=== PATIENT | female | born 1940 | race Caucasian/White ===

== ENCOUNTER 2017-06-03 19:27 | Emergency (ER) | payer MEDICARE, SELFPAY ==
[2017-06-03 19:29] VITALS: BP 153/77; PULSE 92; RESP 18; TEMP 38; O2SAT 94; BMI 26.1
== END 2017-06-03 22:30 | disposition left against medical advice (07) ==
LOC: ED 22:11
PROVIDERS: Emergency Provider Emergency Medicine; Family Provider Family Medicine; PCP Family Medicine
DX: R69 Illness, unspecified (principal)

== ENCOUNTER 2018-09-30 21:55 | Emergency (ER) | payer MEDICARE, SELFPAY ==
[2018-09-30 21:55] VITALS: BP 161/74; PULSE 63; RESP 18; TEMP 36.4; O2SAT 100; BMI 26.0
[2018-09-30 22:12] LABS: Mucous, Urine 0 SEEN /hpf (<or=2+); Red Blood Cells-Urine 0 SEEN /hpf (0-5)
[2018-09-30 22:32] LABS: Color, Urine Yellow (Yellow); Glucose, Dipstick Normal (Normal); Ketone-Dipstick Negative (Negative); Leukocyte Esterase-Dipstick 500 /ul (Negative); Nitrite-Dipstick Positive (Negative); Occult Blood-Urine 10 /ul (Negative); Protein-Dipstick 15 mg/dl (Negative); Urine Bilirubin Dipstick Negative (Negative); Urine Clarity Cloudy (Clear); Urine Urobilinogen Normal (Normal)
--- NOTE | 2018-09-30 22:50 | ED.VISSUMM ---
- ER Visit Summary Date of Service: 09/30/18 Chief Complaint: UTI History of Present Illness: The patient is a 78 F who presents with UTI symptoms. She has a history of frequent recurrent UTIs. She complains of 1 day of bladder pressure and dysuria. She took some leftover Keflex that she had without resolution of symptoms. She denies any systemic symptoms. Physical Examination: Afebrile vitals unremarkable Moist mucous membranes Heart regular rate and rhythm Lungs clear Abdomen soft nontender Test Results: UA shows 500 leukocyte esterase, positive nitrates. Emergency Department Course and Treatment: Patient will be treated with Cipro. She was advised to follow-up with her primary care physician. She understands to return for new or worsening symptoms. She was discharged. Treatment Plan: [] Disposition: Discharge Impression: UTI This note was generated with [employer] dictation software. It may contain incorrect words, spelling, and punctuation that were not noted in review of the chart prior to signing ED Disposition - Plan for ED Patient: Referrals: Manuelito Escamilla MD [Primary Care Provider] -
--- NOTE | 2018-09-30 22:52 | ED.DEP ---
ED Disposition - Plan for ED Patient: Instructions: Urinary Tract Infections in Women Prescriptions: Ciprofloxacin [Cipro] 500 mg PO BID #14 tab Prescription Printed Referrals: Manuelito Escamilla MD [Primary Care Provider] -
[2018-09-30 22:53] LABS: Bacteria 2+ /hpf (None Seen); White Blood Cells 50-100 SEEN /hpf (0-5)
[2018-09-30 22:54] LABS: Squamous Epithelial Cells - UA 0-5 SEEN /hpf (5-10)
== END 2018-09-30 23:17 | disposition home or self-care (01) ==
LOC: ED 22:58
PROVIDERS: Emergency Provider Emergency Medicine; Family Provider Family Medicine; PCP Family Medicine
DX: N39.0 Urinary tract infection, site not specified (principal); I10 Essential (primary) hypertension; E78.00 Pure hypercholesterolemia, unspecified; Z87.440 Personal history of urinary (tract) infections; Z79.899 Other long term (current) drug therapy
CPT/HCPCS: 81001; 99282

== ENCOUNTER 2019-07-27 12:54 | Emergency (ER) | payer MEDICARE, SELFPAY ==
[2019-07-27 12:57] VITALS: BP 158/66; PULSE 81; RESP 17; TEMP 36.8; O2SAT 97; BMI 27.4
--- NOTE | 2019-07-27 13:06 | NURSING ---
NO OLD EKGS
--- NOTE | 2019-07-27 13:53 | RAD_ITS ---
STUDY: X-RAY CHEST REASON FOR EXAM: Female, 79 years old. Palpitations, chest pain TECHNIQUE: Single AP portable view of the chest. COMPARISON: None. FINDINGS: EKG electrodes are seen. Mild increased markings in the right upper lobe as well as in the lower lobes. This may represent either early infiltrates versus atelectasis. Follow-up is recommended. There is no demonstrated pleural abnormality. Normal size heart. Normal mediastinum and petty. Normal visualized pulmonary arteries. Normal visualized aortic arch and descending thoracic aorta. Normal visualized thoracic spine. Normal visualized ribs, clavicles, and shoulders. There is no demonstrated abnormality of the visualized soft tissue structures of the upper abdomen. RAD/Chest 1 View (Portable) IMPRESSION: Faint areas of confluence in both lungs as described. Radiographic follow-up is recommended. Electronically Signed: Adalberto Suresh, at 14:42 EDT , Service support ,
--- NOTE | 2019-07-27 13:54 | EKG12_ITS ---
Test Reason : PALPS Blood Pressure : / mmHG Vent. Rate : 084 BPM Atrial Rate : 084 BPM P-R Int : 168 ms QRS Dur : 082 ms QT Int : 356 ms P-R-T Axes : 007 003 031 degrees QTc Int : 420 ms Sinus rhythm with Premature supraventricular complexes Otherwise normal ECG Confirmed by AMAYA KITCHEN ([id number]), technical writer and editor JOSI CATHERINE ([id number]) on 08/03/2019 1:43:49 PM Referred By: RASHAD/JULES Confirmed By:AMAYA KITCHEN
[2019-07-27 14:05] LABS: Absolute Lymphocyte Count 2.06 X10^3/uL (0.83-4.51); Absolute Neutrophil Count 4.8 X10^3/uL (2.0-7.7); Basophil# 0.03 X10^3/uL; Basophil% 0.4 % (0-1); Hematocrit 39.6 % (37-47); Lymphocyte # 2.06 X10^3/ul (4.0); Lymphocyte % 27.7 % (19-41); Mean Corp Hgb Conc 32.8 g/dL (32-36); Mean Corpuscular Hgb 31.1 pg (27.0-32.0); Mean Corpuscular Volume 94.7 fL (81-99); Monocyte# 0.57 X10^3/uL; Monocyte% 7.7 % (0-10); NRBC Flagged by Analyzer 0 % (0-5); Neutrophil # 4.76 X10^3/uL (2.7-7.7); Neutrophil % 63.9 % (47-70); Platelet Count 253 K/mm3 (150-450); RBC Distribution Width CV 12.5 % (11.6-14.6); RBC Distribution Width SD 43.4 fl (35.1-43.9); Red Blood Count 4.18 M/mm3 (4.2-5.4); White Blood Count 7.4 K/mm3 (4.4-11.0)
--- NOTE | 2019-07-27 14:14 | ED.VISSUMM ---
- ER Visit Summary Date of Service: 07/27/19 Chief Complaint: Palpitations History of Present Illness: The patient is a 79 F who presents with palpitations that began yesterday. Patient states she felt her heart beating irregular. Patient states she has an odd feeling in her chest. Patient states nothing makes it better or worse. Patient states that she has been taking some Mucinex DM for a upper respiratory infection. Patient also states that she has been drinking a little more coffee than normal. Patient states she normally drinks her coffee strong. Patient states that yesterday her palpitations lasted approximately 12 hours. Patient states today she drank some tea instead of drinking coffee. Patient states she felt palpitations after that. Patient denies any chest pain. Patient denies any nausea or vomiting. Patient denies any diaphoresis. Physical Examination: Vital signs are stable. Patient is afebrile. Patient is in no acute distress. Oral mucosa is pink and moist. Neck is supple. Trachea is midline. There is no JVD noted. Heart was regular rate and rhythm with frequent ectopics. Lungs are clear and equal bilaterally. Abdomen is soft. Bowel sounds are normal. There is no tenderness. There is no rebound or guarding noted. Skin is warm dry. Cranial nerves II through XII are intact. There are no focal motor or sensory deficits noted. Extremities are intact. There is no calf tenderness or edema. Test Results: EKG showed a normal sinus rhythm with a rate of 84 with frequent PACs. There are no acute ST or T wave changes. CBC and basic metabolic profile within normal limits. Troponin was normal. Portable chest x-ray was obtained. There are some increased markings in the right upper lobe as well as lower lobes. This was interpreted by the radiologist and reviewed by myself. Urinalysis does not show any evidence of urinary tract infection. Emergency Department Course and Treatment: Patient was resting comfortably on reevaluation. Patient was advised to stop taking the Mucinex DM. Patient was instructed to reduce caffeine intake. Patient was instructed to follow-up with her primary care physician in 5 to 7 days. Patient understood and was agreeable with the plan. All questions were answered. Disposition: Discharge home Impression: 1. Palpitations This note was generated with [employer] software. It may contain incorrect words, spelling, and punctuation that were not noted in review of the chart prior to signing ED Disposition - Plan for ED Patient: Disposition: Home or Assisted Living Diagnosis: Palpitations Instructions: ED Palpitations Referrals: Manuelito Escamilla MD [Primary Care Provider] - 5-7 Days
[2019-07-27 14:18] LABS: Anion Gap 5 (5-15); BUN 16 mg/dL (7-18); BUN/Creat Ratio 17.3 RATIO (10-20); Calcium,Total 9.5 mg/dL (8.5-10.1); Chloride 104 mmol/L (98-107); Creatinine, Serum 0.92 mg/dL (0.55-1.02); EST Glomerular Filtration Rate 62 mL/min (>60); Est Glom Filt Rate - Afr Amer 75 mL/min (>60); Estimated Creatinine Clearance 46.42 ml/min; Glucose 112 mg/dL (74-106); Potassium 4.2 mmol/L (3.5-5.1); Sodium Level 138 mmol/L (136-145)
[2019-07-27 15:05] LABS: Bacteria 0 SEEN /hpf (None Seen); Mucous, Urine 0 SEEN /hpf (<or=2+); Red Blood Cells-Urine 0 SEEN /hpf (0-5)
[2019-07-27 15:06] LABS: Color, Urine Yellow (Yellow); Glucose, Dipstick Normal (Normal); Ketone-Dipstick Negative (Negative); Leukocyte Esterase-Dipstick 100 /ul (Negative); Nitrite-Dipstick Negative (Negative); Occult Blood-Urine Negative /ul (Negative); Protein-Dipstick Negative (Negative); Urine Bilirubin Dipstick Negative (Negative); Urine Clarity Clear (Clear); Urine Urobilinogen Normal (Normal); Urine pH 6.5 (5.0 - 8.0)
[2019-07-27 15:18] LABS: Squamous Epithelial Cells - UA 0-5 SEEN /hpf (5-10); White Blood Cells 0-5 SEEN /hpf (0-5)
[2019-07-27 15:47] VITALS: BP 154/72; PULSE 77; RESP 16; O2SAT 97
== END 2019-07-27 15:54 | disposition home or self-care (01) ==
PROVIDERS: Emergency Provider Emergency Medicine; PCP Family Medicine
DX: R00.2 Palpitations (principal); E78.00 Pure hypercholesterolemia, unspecified; I10 Essential (primary) hypertension; F32.9 Major depressive disorder, single episode, unspecified
CPT/HCPCS: 71045; 80048; 81001; 84484; 85025; 93005; 99283; A4216

== ENCOUNTER 2019-10-09 10:40 | Emergency (ER) | payer MEDICARE, SELFPAY ==
[2019-10-09 10:44] VITALS: BP 109/57; PULSE 30; RESP 16; TEMP 36.4; O2SAT 96; BMI 25.0
--- NOTE | 2019-10-09 10:56 | EKG12_ITS ---
Test Reason : Blood Pressure : / mmHG Vent. Rate : 119 BPM Atrial Rate : 068 BPM P-R Int : 000 ms QRS Dur : 068 ms QT Int : 340 ms P-R-T Axes : 000 023 039 degrees QTc Int : 478 ms Paroxysmal atrial tachycardia Otherwise normal ECG Normal sinus rhythm with short runs of paroxysmal atrial tachycardia Confirmed by RAFITA BOLANOS, KASSY ([id number]), editor farm journal JOSI CATHERINE ([id number]) on 10/15/2019 11:11:22 AM Referred By: Confirmed By:KASSY ELLER MD
--- NOTE | 2019-10-09 10:57 | ED.DCSUM_ITS ---
History of Present Illness Chief Complaint: Palpitations Informant: Patient Onset: Today Narrative: 79-year-old female with past medical history of hypertension presents with concern for palpitations. States that she has had palpitations for the past 1 day. Has had palpitations before in the past but which was attributed to caffeine consumption. States that she has not had caffeine in 1 week. States that she does have a slight tightness in her bilateral shoulders. Denies any nausea, vomiting, shortness of breath, diaphoresis. Denies any new medications at this time. Past Medical History - Allergies and Home Meds Allergies/Adverse Reactions: Allergies aspirin Adverse Reaction (Verified 07/27/19 13:19) Diarrhea Primary Care Physician: Manuelito Escamilla MD [Primary Care Provider] - Prior records reviewed: Yes Past Medical History: - - HTN Surgical History: no surgical history Smoking Status: Former smoker Alcohol: None Drugs: None Review of Systems General: Reports: Chills. Denies: Fever, Sweats Eyes: Denies: Visual changes - bilaterally, Diplopia ENT: Denies: Rhinorrhea, Sore throat Cardiovascular: Reports: Palpitations. Denies: Chest pain Respiratory: Denies: Dyspnea, Cough, Dyspnea on exertion Gastrointestinal: Denies: Abdominal pain, Nausea, Vomiting, Diarrhea, Melena, Hematochezia Genitourinary: Denies: Dysuria, Hematuria, Frequency Musculoskeletal: Reports: Myalgias. Denies: Back pain, Extremity Pain Skin: Denies: Rash, Wounds Neurological: Denies: Headache, Weakness, Numbness Physical Exam Vital Signs/Narrative: Vital Signs Temp Pulse Resp BP Pulse Ox 10/09/19 10:44 97.6 F L 30 L 16 109/57 L 96 Inital Vital Signs reviewed: Yes General: Well nourished, Well developed, No Acute Distress Head: Normocephalic, Atraumatic Eyes: Perrl, EOMI ENT: Moist mucous membranes, No rhinorrhea Neck: Supple, Nontender Cardiovascular: Regular rhythm, No murmurs, Irregular, Tachycardia Respiratory: No distress, CTA bilaterally, Chest nontender Abdomen: Soft, Nontender, Nondistended, Normal bowel sounds Back: Nontender, Normal Inspection Extremities: Nontender, No edema Skin: Normal color, No rash Neurological: Alert, Oriented x3, Cranial nerves II-XII grossly intact, Normal Strength, Normal Sensation Psychological: Normal affect, Normal Mood Diagnostic/Tx/Re-eval Clinical Impression(s) from Imaging Studies Chest X-Ray 10/09/19 11:10 IMPRESSION: Chronic interstitial changes, no superimposed acute pulmonary process Electronically Signed: Darren Masters MD at 11:40 EDT , Service support , Laboratory Data 10/09/19 10/09/19 10:55 10:55 WBC 13.2 H RBC 4.39 Hgb 13.8 Hct 41.9 MCV 95.4 MCH 31.4 MCHC 32.9 RDW Std Deviation 44.8 H RDW Coeff of Bettie 12.8 Plt Count 299 MPV 9.2 Immature Gran % (Auto) 0.500 Neut % (Auto) 85.1 H Lymph % (Auto) 10.8 L Floyd % (Auto) 3.4 Eos % (Auto) 0.0 Baso % (Auto) 0.2 Absolute Neuts (auto) 11.3 H Absolute Lymphs (auto) 1.43 Nucleated RBC % 0 Sodium 135 L Potassium 4.5 Chloride 103 Carbon Dioxide 28.0 Anion Gap 4 L BUN 24 H Creatinine 1.29 H Estim Creat Clear Calc 34.39 Est GFR (MDRD) Af Amer 51 L Est GFR (MDRD) Non-Af 42 L BUN/Creatinine Ratio 18.6 Glucose 163 H Calcium 9.2 Magnesium 2.1 Troponin I < 0.015 TSH 2.21 - Rhythm Strip Rhythm Strip: Sinus tachycardia with multiple ectopic beats - EKG Initial EKG Interpretation: - - Sinus tachycardia with frequent pauses as well as atrial ectopic foci. QTC of 478 ms. No acute evidence of ischemia. - Medical Decision Making Appears well and nontoxic. Normotensive. Lab work within normal limits. Spoke with quantitative developer on-call Dr. Rendon who reviewed the EKG and felt she would benefit from a small bolus of Cardizem in the emergency department. Advised switching her from metoprolol to Cardizem. Did not feel she needs anticoagulation at this time given it is not atrial fibrillation. Will have Holter monitor placed and she will follow-up with Dr. Rendon's office within the next few days. Cardizem patient states that her palpitations have essentially resolved. On the monitor her rhythm remains the same with intermittent episodes of sinus rhythm versus tachycardia with short pauses. Asked to return for any chest pain or shortness of breath. Patient agreeable and discharged home in stable condition. Impression: 1. Palpitations 2. Abnormal heart rhythm ED Disposition - Plan for ED Patient: Disposition: Home or Assisted Living Instructions: ED Palpitations Prescriptions: Diltiazem CD [Cardizem CD] 120 mg PO DAILY #14 cap Prescription Printed Referrals: Manuelito Escamilla MD [Primary Care Provider] - Raymon Rendon MD [STAFF PHYSICIAN] -
[2019-10-09 11:06] VITALS: O2SAT 98
[2019-10-09 11:10] LABS: Absolute Lymphocyte Count 1.43 X10^3/uL (0.83-4.51); Absolute Neutrophil Count 11.3 X10^3/uL (2.0-7.7); Basophil# 0.03 X10^3/uL; Basophil% 0.2 % (0-1); Hematocrit 41.9 % (37-47); Hemoglobin 13.8 g/dL (12.0-15.0); Lymphocyte # 1.43 X10^3/ul (4.0); Lymphocyte % 10.8 % (19-41); Mean Corp Hgb Conc 32.9 g/dL (32-36); Mean Corpuscular Hgb 31.4 pg (27.0-32.0); Mean Corpuscular Volume 95.4 fL (81-99); Mean Platelet Vol. 9.2 fl (6.2-12.0); Monocyte# 0.45 X10^3/uL; Monocyte% 3.4 % (0-10); NRBC Flagged by Analyzer 0 % (0-5); Neutrophil # 11.27 X10^3/uL (2.7-7.7); Neutrophil % 85.1 % (47-70); Platelet Count 299 K/mm3 (150-450); RBC Distribution Width CV 12.8 % (11.6-14.6); RBC Distribution Width SD 44.8 fl (35.1-43.9); Red Blood Count 4.39 M/mm3 (4.2-5.4); White Blood Count 13.2 K/mm3 (4.4-11.0)
--- NOTE | 2019-10-09 11:10 | RAD_ITS ---
STUDY: X-RAY CHEST REASON FOR EXAM: Female, 79 years old. PT C/O PALPITATIONS ONSET LAST NIGHT. FEELS WEAK WHEN UP WALKING. PTS HR DROPPED TO 30 WHILE IN TRIAGE. TECHNIQUE: Single AP portable view of the chest. COMPARISON: 07/27/2019 FINDINGS: EKG leads overlie the chest There are fibrotic changes of the lungs. There is no demonstrated pleural abnormality. Normal size heart. Normal mediastinum and petty. Normal visualized pulmonary arteries. Normal visualized aortic arch and descending thoracic aorta. There are diffuse degenerative changes of the visualized thoracic spine. Normal visualized ribs, clavicles, and shoulders. There is no demonstrated abnormality of the visualized soft tissue structures of the upper abdomen. RAD/Chest 1 View (Portable) IMPRESSION: Chronic interstitial changes, no superimposed acute pulmonary process Electronically Signed: Darren Masters MD at 11:40 EDT , Service support ,
[2019-10-09 11:38] LABS: Anion Gap 4 (5-15); BUN 24 mg/dL (7-18); BUN/Creat Ratio 18.6 RATIO (10-20); Calcium,Total 9.2 mg/dL (8.5-10.1); Chloride 103 mmol/L (98-107); Creatinine, Serum 1.29 mg/dL (0.55-1.02); EST Glomerular Filtration Rate 42 mL/min (>60); Est Glom Filt Rate - Afr Amer 51 mL/min (>60); Estimated Creatinine Clearance 34.39 ml/min; Glucose 163 mg/dL (74-106); Magnesium 2.1 mg/dL (1.6-2.6); Potassium 4.5 mmol/L (3.5-5.1); Sodium Level 135 mmol/L (136-145); Thyroid Stim Hormone (TSH) 2.21 uIU/mL (0.358-3.74)
[2019-10-09] MEDS: dilTIAZem 25 MG/5 ML Vial 10 MG IV BOLUS (12:26)
[2019-10-09 12:48] VITALS: BP 92/58; PULSE 79; RESP 16; O2SAT 96
== END 2019-10-09 14:21 | disposition home or self-care (01) ==
PROVIDERS: Emergency Provider Emergency Medicine; PCP Family Medicine
DX: R00.2 Palpitations (principal); I49.9 Cardiac arrhythmia, unspecified; Z87.891 Personal history of nicotine dependence
CPT/HCPCS: 71045; 80048; 83735; 84443; 84484; 85025; 93005; 93225; 99284; J7040; A4216

== ENCOUNTER → 2019-10-09 13:43 | Outpatient (CLI) | payer MEDICARE, SELFPAY ==
[2019-10-09 10:44] VITALS: BMI 25.0
== END ==
PROVIDERS: PCP Family Medicine; Visit Provider Emergency Medicine
DX: R00.2 Palpitations (principal); I49.9 Cardiac arrhythmia, unspecified; Z87.891 Personal history of nicotine dependence
CPT/HCPCS: 71045; 80048; 83735; 84443; 84484; 85025; 93005; 93225; 93226; 96361; 96374; 99284; J7040; A4216

== ENCOUNTER 2019-10-16 09:31 | Observation (INO) | payer MEDICARE, SELFPAY ==
[2019-10-15 11:52] VITALS: BMI 25.5
[2019-10-16] VITALS (12 sets, daily range): BP systolic 94–154; BP diastolic 54–93; PULSE 74–93; RESP 16–20; TEMP 36.3–36.8; O2SAT 96–98; BMI 25.8; BMI 25.9; BMI 26.0
--- NOTE | 2019-10-16 09:32 | ED.RN ---
EKG COMPLETED PRIOR TO TRIAGE. PT STATES CHEST TIGHTNESS HAS BEEN ONGOING FOR SEVERAL WEEKS. DR KITCHEN PUT PT ON CARDIZEM. PT STATES STILL HAVING TIGHTNESS
--- NOTE | 2019-10-16 10:29 | EKG12_ITS ---
Test Reason : ADMISSION CP Blood Pressure : / mmHG Vent. Rate : 076 BPM Atrial Rate : 076 BPM P-R Int : 154 ms QRS Dur : 078 ms QT Int : 398 ms P-R-T Axes : 024 -03 020 degrees QTc Int : 447 ms Normal sinus rhythm Left ventricular hypertrophy Abnormal ECG When compared with ECG of 16-OCT-2019 09:28, MANUAL COMPARISON REQUIRED, DATA IS UNCONFIRMED Confirmed by ANGELA BOLANOS, ANGEL ([id number]), assistant production editor GEOVANNA CHAPPELL ([id number]) on 10/19/2019 2:11:08 PM Referred By: WU Confirmed By:QUINTON MILLER MD
[2019-10-16 10:43] LABS: Absolute Lymphocyte Count 1.29 X10^3/uL (0.83-4.51); Absolute Neutrophil Count 4.8 X10^3/uL (2.0-7.7); Basophil# 0.03 X10^3/uL; Basophil% 0.5 % (0-1); Hematocrit 37.8 % (37-47); Hemoglobin 12.4 g/dL (12.0-15.0); Lymphocyte # 1.29 X10^3/ul (4.0); Lymphocyte % 19.7 % (19-41); Mean Corp Hgb Conc 32.8 g/dL (32-36); Mean Corpuscular Hgb 31.6 pg (27.0-32.0); Mean Corpuscular Volume 96.2 fL (81-99); Mean Platelet Vol. 9.1 fl (6.2-12.0); Monocyte# 0.41 X10^3/uL; Monocyte% 6.3 % (0-10); NRBC Flagged by Analyzer 0 % (0-5); Neutrophil # 4.77 X10^3/uL (2.7-7.7); Neutrophil % 72.9 % (47-70); Platelet Count 261 K/mm3 (150-450); RBC Distribution Width CV 12.7 % (11.6-14.6); RBC Distribution Width SD 45.3 fl (35.1-43.9); Red Blood Count 3.93 M/mm3 (4.2-5.4); White Blood Count 6.5 K/mm3 (4.4-11.0)
[2019-10-16 10:54] LABS: Anion Gap 3 (5-15); BUN 13 mg/dL (7-18); BUN/Creat Ratio 14.3 RATIO (10-20); Chloride 106 mmol/L (98-107); Creatinine, Serum 0.91 mg/dL (0.55-1.02); EST Glomerular Filtration Rate 63 mL/min (>60); Est Glom Filt Rate - Afr Amer 77 mL/min (>60); Estimated Creatinine Clearance 46.93 ml/min; Glucose 110 mg/dL (74-106); Potassium 4.1 mmol/L (3.5-5.1); Sodium Level 138 mmol/L (136-145)
[2019-10-16 10:55] LABS: Prothrombin Time (Protime)PT. 12.9 SECONDS (11.7-14.9)
--- NOTE | 2019-10-16 11:30 | RAD_ITS ---
STUDY: X-RAY CHEST REASON FOR EXAM: Female, 79 years old. ONGOING CP AND TIGHTNESS, RECENTLY STARTED NEW HE[facility], INCREASED YESTERDAY -- HX OF HTN TECHNIQUE: Single AP portable view of the chest. COMPARISON: 10/09/2019 FINDINGS: The lungs are clear and expanded. There is no demonstrated pleural abnormality. Normal size heart. Normal mediastinum and petty. Normal visualized pulmonary arteries. Normal visualized aortic arch and descending thoracic aorta. There is a dextroscoliosis of the thoracic spine. Normal visualized ribs, clavicles, and shoulders. There is no demonstrated abnormality of the visualized soft tissue structures of the upper abdomen. RAD/Chest 1 View (Portable) IMPRESSION: No active disease. Electronically Signed: Yung Gates MD at 11:48 EDT Tel , Service support ,
--- NOTE | 2019-10-16 11:45 | ED.DCSUM_ITS ---
History of Present Illness Chief Complaint: Chest Pain Informant: Patient Narrative: Patient is a 79-year-old female who presents to the emerge part for palpitations, chest pain and shortness of breath. Her symptoms have been present over the past couple of weeks. She was seen in the emergency department twice. The last was a week ago. She spoke to her industrial robotics mechanic, Dr. Rendon who put her on Cardizem. She was discharged home at that time. He scheduled her for an outpatient stress test and echocardiogram. He told her to return to the emerge part if she developed any chest tightness which she did. This seems to get worse when she is exerting herself. She states that she is able to walk maybe a quarter of a mile before she becomes very winded and must sit down to catch her breath. She denies any cough, cold, congestion. No fevers or chills. No significant chest pain. While resting she denies any symptoms currently. Has any history of A. fib. She is not on any anticoagulation. No history of heart attacks, strokes or DVT/PE. No leg swelling or calf pain. No abdominal pain or back pain. She is a former smoking history. She states that she has cut back significantly on her caffeine which is what they told her was causing her palpitations previously. Past Medical History - Allergies and Home Meds Allergies/Adverse Reactions: Allergies aspirin Adverse Reaction (Verified 10/16/19 09:35) Diarrhea Prior records reviewed: Yes Past Medical History: - - Hypertension, hyperlipidemia Surgical History: no surgical history Smoking Status: Former smoker Alcohol: None Drugs: None - Family History Paternal Family History: Family History (Last Updated 10/13/19 @ 18:21 by Kaylee Vernon) Father Thoracic aortic aneurysm (TAA) Sister Hypertension Arthritis Review of Systems All systems negative except as indicated General: Denies: Chills, Fever, Sweats Eyes: Denies: Visual changes - bilaterally, Diplopia ENT: Denies: Rhinorrhea, Sore throat Cardiovascular: Reports: Chest pain - Chest tightness, Palpitations Respiratory: Reports: Dyspnea, Dyspnea on exertion. Denies: Cough Gastrointestinal: Denies: Abdominal pain, Nausea, Vomiting, Diarrhea Genitourinary: Denies: Dysuria, Hematuria, Frequency Musculoskeletal: Denies: Back pain, Extremity Pain Skin: Denies: Rash, Wounds Neurological: Denies: Headache, Weakness, Numbness Physical Exam Vital Signs/Narrative: Vital Signs Temp Pulse Resp BP Pulse Ox 10/16/19 11:06 80 18 143/71 H 96 10/16/19 10:25 88 20 H 94/54 L 96 10/16/19 09:33 97.9 F 87 20 H 149/93 H 98 Inital Vital Signs reviewed: Yes General: Well nourished, Well developed, No Acute Distress Head: Normocephalic, Atraumatic Eyes: Perrl, EOMI ENT: Moist mucous membranes, No rhinorrhea Neck: Supple, Nontender Cardiovascular: Regular rate, Regular rhythm, No murmurs Respiratory: No distress, CTA bilaterally, Chest nontender Abdomen: Soft, Nontender, Nondistended, Normal bowel sounds Back: Nontender, Normal Inspection Extremities: Nontender, No edema. Negative for: Edema, Calf Tenderness Skin: Normal color, No rash Neurological: Alert, Oriented x3, Cranial nerves II-XII grossly intact, Normal Strength, Normal Sensation Psychological: Normal affect, Normal Mood Diagnostic/Tx/Re-eval - Medical Decision Making Patient presents to the emergency department for chest tightness, shortness of breath with exertion and palpitations intermittently. She is currently asymptomatic. Vital signs upon arrival are within normal limits. She is post to have an outpatient stress test but told to come to the emergency department if her symptoms worsen for an inpatient test. Physical exam is benign. Basic lab work obtained allowed EKG and chest x-ray. Lab work-up did not reveal any significant acute abnormality. No evidence of arrhythmia on telemetry. Due to the chest tightness and supposed to have scheduled outpatient stress test will bring her in for this. Since she has been at rest she has not had any symptoms here in the ED. She has been stable throughout stay. Patient understands and is agreeable this plan. ED Disposition - Plan for ED Patient: Disposition: Acute Care [facility] Diagnosis: Atypical chest pain, Palpitations, Exertional dyspnea
--- NOTE | 2019-10-16 12:19 | NURSING ---
PCU OBS WU CHEST TIGHTNESS
--- NOTE | 2019-10-16 12:24 | PCM.HP.STD ---
Problem List (1) Premature atrial contractions Status: Acute (2) Premature ventricular contractions Status: Acute (3) Sinus tachycardia Status: Acute (4) Hypertension Status: Chronic (5) Prediabetes Status: Chronic (6) Atypical chest pain Status: Acute History of Present Illness Date of Admission: 10/16/19 Chief Complaint: Chest tightness and palpitation for about 2 months The patient is a 79 year old F with no prior history of coronary artery disease came to ER with chest tightness and shortness of breath and palpitation. Patient had palpitation started about 2 months ago and improved on medication and changing to decaffeinated until last Saturday. About a week ago, she got palpitation and came to ER and Cardizem 120 mg was added and then she was seen by Dr. Rendon yesterday. Cardizem was increased to 180 mg daily along with outpatient order for stress echo and echo test and pulmonary evaluation by . Patient had to come to ER today because of chest tightness bilaterally in the front along with shortness of breath and palpitation. Chest tightness comes with exertion and relieved with rest, last for 5 to 10 minutes associated with shortness of breath and nausea. EKG shows normal sinus rhythm at 84 bpm. First troponin negative. In ED, her vitals were stable, sinus rhythm heart rate in 80s. She also has history of recurrent UTI, last episode he started yesterday with burning micturition, increased frequency urgency. She takes Cipro 500 mg twice daily for 2 to 3 days and it gets resolved. She started Cipro yesterday. [] Past Medical History Past Medical History (Chronic Problems): Chronic Problems (Last Updated 10/13/19 @ 18:23 by Kaylee Vernon) Hypertension (Chronic) Prediabetes (Chronic) Medical History: Medical History (Last Updated 10/13/19 @ 18:23 by Kaylee Vernon) Palpitations (Acute) R00.2 Premature atrial contractions (Acute) I49.1 Premature ventricular contractions (Acute) I49.3 Sinus tachycardia (Acute) R00.0 Hypertension (Chronic) I10 Prediabetes (Chronic) R73.03 Degenerative disc disease GERD (gastroesophageal reflux disease) K21.9 Hiatal hernia K44.9 Hyperlipidemia E78.5 Nonrheumatic mitral (valve) insufficiency I34.0 Mild per previous echo done @ [facility] 08/15/2016 Skin cancer C44.90 Allergies aspirin Adverse Reaction (Verified 10/16/19 09:35) Diarrhea Home Medications: Ambulatory Orders Medication Instructions Recorded Atorvastatin Calcium 20 mg PO DAILY 07/27/19 Sertraline HCl 50 mg PO DAILY 07/27/19 Omeprazole 40 mg PO DAILY 10/09/19 gabapentin 100 mg capsule 100 mg PO QHS cap 10/13/19 triamcinolone acetonide 0.1 % 1 applic TOPICAL DAILY PRN 10/13/19 topical cream diltiazem HCl 180 mg 180 mg PO DAILY #30 cap 10/15/19 capsule,extended release 24 hr Surgical History: Surgical History (Last Updated 10/13/19 @ 18:20 by Kaylee Vernon) History of colonoscopy Z98.890 History of esophagogastroduodenoscopy (EGD) Z98.890 History of tubal ligation Z98.51 Surgical History: no surgical history Smoking Status: Former smoker Alcohol: None Drugs: None - *Family History Paternal Family History: Family History (Last Updated 10/13/19 @ 18:21 by Kaylee Vernon) Father Thoracic aortic aneurysm (TAA) Sister Hypertension Arthritis Review of Systems Constitutional: Denies: Chills, Fever, Weight Change HEENT: Denies: Head Aches, Sinus Congestion, Sinus Drainage Cardiovascular: Reports: Chest Pressure, Chest Tightness. Denies: Chest Pain, Palpitations Respiratory: Reports: Shortness of Breath, Shortness of breath upon exertion. Denies: Cough, Shortness of breath at rest, Sputum production Gastrointestinal: Denies: Abdominal Pain, Nausea, Vomiting Genitourinary: Reports: Dysuria, Frequency, Urgency Musculoskeletal: Denies: Joint Pain, Joint Tenderness Skin: Denies: Rash, Wounds Neurological: Denies: Numbness, Tingling, Focal weakness Psychiatric: Denies: Anxiety, Depression, Homicidal Ideations, Suicidal Ideations Hematologic/ Lymphatic: Denies: Easy Bruising, Easy Bleeding VTE Information - Inpt Only VTE Present on Admission: No VTE Mechan Device Prophylaxis: None VTE Pharm Prophylaxis ordered?: Yes Patient Problems: Active and Suspected Problems (Last Updated 10/13/19 @ 18:23 by Kaylee Vernon) Atypical chest pain (Acute) - Physical Exam Vitals/I&O's: Vital Signs Temp Pulse Resp BP Pulse Ox 97.9 F 80 18 143/71 H 96 10/16/19 09:33 10/16/19 11:06 10/16/19 11:06 10/16/19 11:06 10/16/19 11:06 Oxygen Delivery Method Room Air Weight: 160 lb Body Mass Index (BMI) 25.8 General: Alert, Oriented x3, Cooperative HEENT: Atraumatic, PERRLA, EOMI, Normocephalic Oral: No Gingival or Mucosal Lesions/ Ulcerations, Dry Mucosa Neck: Supple, No JVD, Negative Carotid Bruits Lungs: No rhonchi, No wheeze, No rales, Diminished - Air entry slightly diminished in the right lung base Cardiovascular: Regular rate, Regular Rhythm, Normal S1, Normal S2, No murmurs Abdomen: Bowel Sounds Present, Soft, Non Tender, Non-Distended Extremities: No edema, Capillary Refill Less than 3 Seconds Skin: No rashes, No breakdown Musculoskeletal: No Tenderness to Palpation of Joints or Extremities, Arthritic Changes Neurological: Cranial nerves II-XII grossly intact, Deep Tendon Reflexes 2+/4 and Symmetrical, Neuro grossly intact, Motor Exam 5/5 strength throughout Psych/Mental Status: Normal Affect, Appropriate Laboratory Results 10/16/19 09:58: WBC 6.5, RBC 3.93 L, Hgb 12.4, Hct 37.8, MCV 96.2, MCH 31.6, MCHC 32.8, RDW Std Deviation 45.3 H, RDW Coeff of Bettie 12.7, Plt Count 261, MPV 9.1, Immature Gran % (Auto) 0.600, Neut % (Auto) 72.9 H, Lymph % (Auto) 19.7, [place] % (Auto) 6.3, Eos % (Auto) 0.0, Baso % (Auto) 0.5, Absolute Neuts (auto) 4.8, Absolute Lymphs (auto) 1.29, Nucleated RBC % 0 10/16/19 09:58: PT 12.9, INR 1.0 10/16/19 09:58: Sodium 138, Potassium 4.1, Chloride 106, Carbon Dioxide 29.0, Anion Gap 3 L, BUN 13, Creatinine 0.91, Estim Creat Clear Calc 46.93, Est GFR (MDRD) Af Amer 77, Est GFR (MDRD) Non-Af 63, BUN/Creatinine Ratio 14.3, Glucose 110 H, Calcium 9.0, Troponin I < 0.015 Assessment/Plan All Active Problems (Last Updated 10/13/19 @ 18:23 by Kaylee Vernon) Atypical chest pain (Acute) Premature atrial contractions (Acute) Premature ventricular contractions (Acute) Sinus tachycardia (Acute) The patient is a 79 year old F with no prior history of coronary artery disease came to ER with chest tightness and shortness of breath and palpitation. [ 1. Atypical chest pain: Patient is being admitted to PCU. First EKG shows normal sinus rhythm at 84 bpm. First troponin negative. Repeat EKG shows normal sinus rhythm at 76 bpm with LVH. No significant ST-T change suggestive of ischemia. Serial troponin enzymes. 2D echo and stress echo with treadmill tomorrow a.m. 2. Arrhythmia: Patient has palpitation with PACs and PVCs: Continue Cardizem 180 mg daily. Currently patient in sinus rhythm. 3. Possible allergic rhinitis/bronchitis: Patient is referred to see crm system administrator Dr. Edmond and respiratory therapist as an outpatient. Currently patient is not tachypneic, hypoxic or in respiratory distress. She has remote history of smoking quit about 15 years ago. 4. Acute on recurrent UTI: Repeat UA with urine culture. Continue Cipro which she self started at home. DVT prophylaxis: On Lovenox 40 minutes of daily OBSV E&M: 35960 Initial observation care L3
--- NOTE | 2019-10-16 13:19 | EKG12_ITS ---
Test Reason : CP Blood Pressure : / mmHG Vent. Rate : 084 BPM Atrial Rate : 084 BPM P-R Int : 148 ms QRS Dur : 076 ms QT Int : 362 ms P-R-T Axes : 030 003 033 degrees QTc Int : 427 ms Normal sinus rhythm Normal ECG Confirmed by RAFITA BOLANOS, KASSY ([id number]), editor house organ DWAYNE STEEL ([id number]) on 10/20/2019 9:28:42 AM Referred By: Raymon Rendon Confirmed By:KASSY ELLER MD
--- NOTE | 2019-10-16 14:07 | ECHOD_ITS ---
Reason For Study: Palpitations Procedure This was a 2D Doppler, Color Flow transthoracic echocardiogram. Exam performed portable in patient room. Left Ventricle Normal LV size. The estimated ejection fraction is 65 %. Unable to assess diastolic dysfunction. No regional wall motion abnormalities noted. Right Ventricle Normal RV size. Normal systolic function. Atria Normal left atrium. Normal right atrium. No doppler evidence for ASD. Mitral Valve There is moderate mitral annular calcification. There is no mitral valve stenosis. Mild-Moderate (1- 2+) mitral valve insufficiency. Tricuspid Valve There is no tricuspid stenosis. Mild tricuspid valve insufficiency. Pulmonary artery systolic pressure is 30-35 mmHg. Aortic Valve Trisinus/trileaflet aortic valve. There is no aortic stenosis. Mild (1+) aortic valve insufficiency. Pulmonic Valve There is no pulmonic valvular stenosis. No pulmonic valve insufficiency. Great Vessels Normal aortic root. Pericardium/Pleural No pericardial effusion. MMode/2D Measurements & Calculations LVIDd: 3.4 cm IVSd: 1.3 cm LA dimension: 3.3 cm LVIDs: 2.7 cm LVPWd: 1.1 cm FS: 21.9 % LAV(MOD-bp): 54.4 ml LA A4 area: 21.5 cm2 LAV(MOD-bp) Indexed: 29.8 ml/m2 LAV(MOD-sp2): 43.3 ml LAV(MOD-sp4): 63.6 ml Time Measurements MV dec time: 0.19 sec Doppler Measurements & Calculations MV E max brent: 83.3 cm/sec Lat Peak E' Brent: 9.4 cm/sec Med Peak E' Brent: 7.2 cm/sec MV A max brent: 133.3 cm/sec E/E' lat: 8.8 E/E' med: 11.6 MV E/A: 0.62 MV V2 max: 163.7 cm/sec MV P1/2t max brent: 122.3 cm/sec Ao V2 max: 152.7 cm/sec MV max P.7 mmHg MV P1/2t: 72.3 msec Ao max P.3 mmHg MV V2 mean: 86.4 cm/sec MV dec slope: 495.3 cm/sec2 Ao V2 mean: 93.6 cm/sec MV mean P.5 mmHg MVA(P1/2t): 3.0 cm2 Ao mean P.1 mmHg MV V2 VTI: 33.0 cm Ao V2 VTI: 29.2 cm LV V1 max: 97.9 cm/sec PA V2 max: 117.5 cm/sec TR max brent: 275.9 cm/sec LV V1 max P.8 mmHg TR max P.5 mmHg LV V1 mean P.9 mmHg LV V1 mean: 64.3 cm/sec LV V1 VTI: 23.7 cm Interpretation Summary The estimated ejection fraction is 65 %. Unable to assess diastolic dysfunction. Mild-Moderate (1-2+) mitral valve insufficiency. Mild (1+) aortic valve insufficiency. Ordering Physician: Eyal Espinoza Performed By: Kemal Hernandez RCS
[2019-10-16] MEDS: 0.9% Saline Lock 10 ML Syringe IV (15:56)
[2019-10-16] MEDS: 0.9% Normal Saline 1,000 ML 75 ML IV (15:56)
[2019-10-16] MEDS: Enoxaparin 40 MG/0.4 ML Syringe SC (15:56)
[2019-10-16 16:18] LABS: Bacteria 0 SEEN /hpf (None Seen); Mucous, Urine 0 SEEN /hpf (<or=2+); Red Blood Cells-Urine 0 SEEN /hpf (0-5)
[2019-10-16 16:33] LABS: Color, Urine Yellow (Yellow); Glucose, Dipstick Normal (Normal); Ketone-Dipstick Negative (Negative); Leukocyte Esterase-Dipstick 25 /ul (Negative); Nitrite-Dipstick Negative (Negative); Occult Blood-Urine Negative /ul (Negative); Protein-Dipstick Negative (Negative); Urine Bilirubin Dipstick Negative (Negative); Urine Clarity Sl. Cloudy (Clear); Urine Urobilinogen Normal (Normal)
[2019-10-16 16:43] LABS: Amorphous Sediment 1+ PHOS; Squamous Epithelial Cells - UA 0-5 SEEN /hpf (5-10); White Blood Cells 0-5 SEEN /hpf (0-5)
[2019-10-16] MEDS: Ciprofloxacin 500 MG Tablet PO ×2 (21:22)
[2019-10-16] MEDS: Sodium Chloride 0.65% 1 SPRAY SPRAY.BTL NASAL (21:22)
[2019-10-16] MEDS: Atorvastatin Calcium 20 MG Tablet PO (21:22)
[2019-10-16] MEDS: Gabapentin 100 MG Capsule PO (21:22)
[2019-10-17 03:00] VITALS: PULSE 77
[2019-10-17 03:31] VITALS: BP 138/71; PULSE 74; RESP 14; TEMP 36.7; O2SAT 95
--- NOTE | 2019-10-17 05:55 | EKG12_ITS ---
Test Reason : AM EKG Blood Pressure : / mmHG Vent. Rate : 080 BPM Atrial Rate : 080 BPM P-R Int : 146 ms QRS Dur : 076 ms QT Int : 374 ms P-R-T Axes : 023 000 032 degrees QTc Int : 431 ms Normal sinus rhythm Normal ECG Confirmed by DANA BOLANOS, JENY ([id number]), film editor JOSI CATHERINE ([id number]) on 10/22/2019 3:41:34 PM Referred By: DEREK Confirmed By:JENY CORTEZ MD
[2019-10-17 06:50] LABS: Cholesterol 163 mg/dL (200); High Density Lipoprotein 64 mg/dL; Thyroid Stim Hormone (TSH) 3.68 uIU/mL (0.358-3.74); Triglycerides 174 mg/dL; Very Low Density Lipoprotein 35 mg/dL (5-40)
[2019-10-17 07:00] VITALS: PULSE 90
[2019-10-17 07:32] VITALS: O2SAT 95
[2019-10-17 08:35] VITALS: BP 146/59; PULSE 77; RESP 14; TEMP 36.6; O2SAT 96
[2019-10-17] MEDS: Pantoprazole Sodium 40 MG Tablet PO (12:45)
[2019-10-17] MEDS: dilTIAZem CD 180 MG Capsule PO (12:45)
[2019-10-17] MEDS: Sertraline 50 MG Tablet PO (12:45)
--- NOTE | 2019-10-17 13:04 | PCM.DC ---
- Discharge Diagnoses Current Active Problems: Current Active and Chronic Problems (Last Updated 10/13/19 @ 18:23 by Kaylee Vernon) Atypical chest pain (Acute) Atypical chest pain (Acute) Palpitations (Acute) Exertional dyspnea (Acute) You will use the following diet at home:: Cardiac Your food should be the consistency of: Regular Discharge Activity: Return to Normal Activity Call your doctor if you observe: Fever of 101 or Higher, Coldness, Increased Pain, Numbness or Tingling, Change in Color, Inability to urinate, Inability to have a bowel movement, Using more than one pad per hour, Shortness of breath, Dizziness, Fainting spells, Swelling in the ankles, Chest pain, Prolonged hiccoughing, Increased palpitations (irregular heartbeat) Additional Instructions: Please, do not take Cipro and Diflucan together as it prolongs QT interval. Patient just need 1 more tablet of Cipro to complete 3 days of ciprofloxacin. Also has yeast infection. Diflucan given and was advised to take 200 mg 1 dose for uncomplicated first episode and 200 mg every 72 hours total of 2 doses if complicated and severe. Follow-up on Saturday for stress echo with Dr. Rendon. Allergies/Adverse Reactions: Allergies aspirin Adverse Reaction (Verified 10/16/19 09:35) Diarrhea Medications to take at Discharge Atorvastatin Calcium 20 mg PO DAILY 07/27/19 Sertraline HCl 50 mg PO DAILY 07/27/19 Omeprazole 40 mg PO DAILY 10/09/19 gabapentin 100 mg capsule 100 mg PO QHS cap 10/13/19 triamcinolone acetonide 0.1 % topical cream 1 applic TOPICAL DAILY PRN 10/13/19 diltiazem HCl 180 mg capsule,extended release 24 hr 180 mg PO DAILY #30 cap 10/15/19 Aspirin E.C. [Ecotrin] 81 mg PO DAILY@0800 #30 tab 10/17/19 Ciprofloxacin [Cipro] 500 mg PO BID #7 tab 10/17/19 Fluconazole [Diflucan] 200 mg PO DAILY #10 tab 10/17/19 The following prescriptions were given: Ciprofloxacin [Cipro] 500 mg PO BID #7 tab Transmission Status: Pending to [facility] Fluconazole [Diflucan] 200 mg PO DAILY #10 tab Transmission Status: Pending to [facility] Aspirin E.C. [Ecotrin] 81 mg PO DAILY@0800 #30 tab Transmission Status: Pending to [facility] Primary Care Physician: Manuelito Escamilla MD [Primary Care Provider] - Please follow up with your Primary Care Physician in: In 1 week Test Results: Test results from this visit will be discussed in further detail at your follow-up appointment, if applicable. Please Follow Up With: Raymon Rendon MD When: with stress ECHO in 1 week
--- NOTE | 2019-10-17 13:09 | DS.PCM_ITS ---
Discharge Date and Diagnosis - Problem List Patient Problems: Active and Suspected Problems (Last Updated 10/13/19 @ 18:23 by Kaylee Vernon) Atypical chest pain (Acute) Atypical chest pain (Acute) Palpitations (Acute) Exertional dyspnea (Acute) Date of Admission: 10/16/19 Date of Discharge: 10/17/19 - Primary Discharge Diagnosis Acute Problems: Active Problems (Last Updated 10/13/19 @ 18:23 by Kaylee Vernon) Atypical chest pain (Acute) Atypical chest pain (Acute) Palpitations (Acute) Exertional dyspnea (Acute) - Secondary Discharge Diagnosis Chronic Problems: Chronic Problems (Last Updated 10/13/19 @ 18:23 by Kaylee Vernon) Hypertension (Chronic) Prediabetes (Chronic) Hospital Course and Treatment Imaging Results: 10/17/19 05:55 Stress Test Echo W/Contrast [ECHO] AM (NON MEDS) Summary of Care Provided: [] The patient is a 79 year old F with no prior history of coronary artery disease came to ER with chest tightness and shortness of breath and palpitation. [ 1. Atypical chest pain: Patient is being admitted to PCU. First EKG shows normal sinus rhythm at 84 bpm. First troponin negative. Repeat EKG shows normal sinus rhythm at 76 bpm with LVH. No significant ST-T change suggestive of ischemia. Serial troponin enzymes were negative. Patient had 2D echo done which showed mild to moderate MR but no wall motion abnormality. It was verbally told to me by Dr. Garza. Patient sent home on baby aspirin. Patient does not have true allergy with aspirin but gets mild diarrhea. Stress echo could not be done and is scheduled for 10/19/2019. Follow-up with Dr. Rendon. 2. Arrhythmia: Patient has palpitation with PACs and PVCs: Continue Cardizem 180 mg daily. Currently patient in sinus rhythm. Heart rate controlled on threat monitoring analyst. Continue Cardizem. 3. Possible allergic rhinitis/bronchitis: Patient is referred to see private security guard Dr. Edmond and respiratory therapist as an outpatient. Currently patient is not tachypneic, hypoxic or in respiratory distress. She has remote history of smoking quit about 15 years ago. 4. Acute on recurrent UTI and recurrent yeast infection: WBC 0-5, LE 25. Patient to complete last dose of Cipro tonight. Prescription for Cipro and Diflucan given and advised not to take it together to avoid QT prolongation. DVT prophylaxis: On Lovenox 40 minutes of daily Discharge medication reconciliation done. Discharge follow-up instructions completed. Discharge process discussed with the patient and all questions were answered to patient's satisfaction. Total time spent, exact 35 minutes on discharge meds reconciliation, examination, coordination of care with nurses and ancillary staff, review of imaging and blood test and discussion with the patient on follow-up instructions Patient Problems: Active and Suspected Problems (Last Updated 10/13/19 @ 18:23 by Kaylee Vernon) Atypical chest pain (Acute) Atypical chest pain (Acute) Palpitations (Acute) Exertional dyspnea (Acute) Objective: Normal sinus rhythm on monitor. About 1:59 AM threat monitoring analyst shows heart rate in 100s but patient was sleeping and maintain palpitation. No chest pain or shortness of breath. Patient also has history of recurrent UTI and self treats with Cipro for 2-3 days. Also gets yeast infection requested Diflucan. Physical exam General: Alert, Oriented x3, Cooperative HEENT: Atraumatic, PERRLA, EOMI, Normocephalic Oral: No Gingival or Mucosal Lesions/ Ulcerations Neck: Supple, No JVD, Negative Carotid Bruits Lungs: Air entry equal in bilateral lung bases. No crepitation/rhonchi Cardiovascular: Regular rate, Regular Rhythm, Normal S1, Normal S2, pansystolic murmur present over mitral area but no radiation to axilla area. Abdomen: Bowel Sounds Present, Soft, Non Tender, Non-Distended : No renal angle tenderness. No suprapubic tenderness. Extremities: No edema, Capillary Refill Less than 3 Seconds Skin: No rashes, No breakdown Musculoskeletal: No Tenderness to Palpation of Joints or Extremities Neurological: Cranial nerves II-XII grossly intact, Deep Tendon Reflexes 2+/4 and Symmetrical, Neuro grossly intact Psych/Mental Status: Normal Affect, Appropriate. - Physical Exam Vitals/I&O's: Vital Signs Temp Pulse Resp BP Pulse Ox 97.9 F 77 14 146/59 H 96 10/17/19 08:35 10/17/19 08:35 10/17/19 08:35 10/17/19 08:35 10/17/19 08:35 Oxygen Delivery Method Room Air Weight: 161 lb 2.526 oz Body Mass Index (BMI) 25.9 Intake and Output for Last 24 Hours 10/15/19 10/16/19 10/17/19 23:59 23:59 23:59 Intake Total 1043.75 / 1043.75 396.25 / 396.25 Balance 1043.75 / 1043.75 396.25 / 396.25 Laboratory Results 10/16/19 09:58: Magnesium 2.0 10/16/19 13:53: Troponin I < 0.015 10/16/19 16:00: Urine Color Yellow, Urine Clarity Sl. Cloudy, Urine pH 7.0, Ur Specific [place] 1.010, Urine Protein Negative, Urine Glucose (UA) Normal, Urine Ketones Negative, Urine Occult Blood Negative, Urine Nitrite Negative, Urine Bilirubin Negative, Urine Urobilinogen Normal, Ur Leukocyte Esterase 25 H, Urine RBC 0 SEEN, Urine WBC 0-5 SEEN, Ur Squamous Epith Cells 0-5 SEEN, Amorphous Sediment 1+ PHOS, Urine Bacteria 0 SEEN, Urine Mucus 0 SEEN 10/16/19 16:05: Troponin I < 0.015 10/17/19 06:04: Triglycerides 174, Cholesterol 163, LDL Cholesterol 64, VLDL Cholesterol 35, HDL Cholesterol 64, TSH 3.68 Current Medications Acetaminophen (Tylenol) 650 mg PO Q6H PRN PRN PRN Reason: Pain Score 1-10/Temp > 100.7 F Al Hydroxide/Mg Hydroxide (Mylanta Ii) 30 ml PO Q6H PRN PRN PRN Reason: Gastric Burning Atorvastatin Calcium (Lipitor) 20 mg PO QHS [facility] Last Admin: 10/16/19 21:22 Dose: 20 mg Documented by: Ciprofloxacin HCl (Cipro) 500 mg PO BID [facility] Stop: 10/17/19 22:01 Last Admin: 10/16/19 21:22 Dose: 500 mg Documented by: Diltiazem HCl (Cardizem Cd) 180 mg PO DAILY [facility] Last Admin: 10/17/19 12:45 Dose: 180 mg Documented by: Enoxaparin Sodium (Lovenox) 40 mg SC DAILY [facility] Last Admin: 10/17/19 12:51 Dose: Not Given Documented by: Gabapentin (Neurontin) 100 mg PO QHS [facility] Last Admin: 10/16/19 21:22 Dose: 100 mg Documented by: Morphine Sulfate () 2 mg IV Q3H PRN PRN PRN Reason: Pain Score 6-10/10 Nitroglycerin (Nitrostat) 0.4 mg SUBLINGUAL Q5M PRN PRN Reason: CARDIAC/CHEST PAIN Oxycodone HCl (Oxyir) 5 mg PO Q4H PRN PRN PRN Reason: Pain Score 4-5/10 Pantoprazole Sodium (Protonix) 40 mg PO DAILY [facility] Last Admin: 10/17/19 12:45 Dose: 40 mg Documented by: Prochlorperazine Edisylate (Compazine Iv) 5 mg IV Q4H PRN PRN PRN Reason: Breakthrough Nausea/Vomiting Senna/Docusate Sodium (Senokot-S, Abena-Colace) 2 tablet PO BID PRN PRN PRN Reason: Constipation Sertraline HCl (Zoloft) 50 mg PO DAILY [facility] Last Admin: 10/17/19 12:45 Dose: 50 mg Documented by: Sodium Chloride () 10 - 40 ml IV UD PRN PRN Reason: SALINE FLUSH Last Admin: 10/16/19 15:56 Dose: 10 ml Documented by: Sodium Chloride ([place] Nasal [place]) 1 spray NASAL BID PRN PRN PRN Reason: NASAL DRYNESS Last Admin: 10/16/19 21:22 Dose: 1 spray Documented by: Triamcinolone Acetonide (Triamcinolone Acetonide) 1 applic TOPICAL DAILY PRN PRN PRN Reason: SKIN IRRITATION Discharge Activity: Return to Normal Activity Call your doctor if you observe: Fever of 101 or Higher, Coldness, Increased Pain, Numbness or Tingling, Change in Color, Inability to urinate, Inability to have a bowel movement, Using more than one pad per hour, Shortness of breath, Dizziness, Fainting spells, Swelling in the ankles, Chest pain, Prolonged hiccoughing, Increased palpitations (irregular heartbeat) Home Medications: Medications to take at Discharge Atorvastatin Calcium 20 mg PO DAILY 07/27/19 Sertraline HCl 50 mg PO DAILY 07/27/19 Omeprazole 40 mg PO DAILY 10/09/19 gabapentin 100 mg capsule 100 mg PO QHS cap 10/13/19 triamcinolone acetonide 0.1 % topical cream 1 applic TOPICAL DAILY PRN 10/13/19 diltiazem HCl 180 mg capsule,extended release 24 hr 180 mg PO DAILY #30 cap 10/15/19 Aspirin E.C. [Ecotrin] 81 mg PO DAILY@0800 #30 tab 10/17/19 Ciprofloxacin [Cipro] 500 mg PO BID #7 tab 10/17/19 Fluconazole [Diflucan] 200 mg PO DAILY #10 tab 10/17/19 Following Prescriptions Were Given to Patient: Ciprofloxacin [Cipro] 500 mg PO BID #7 tab Transmission Status: Pending to [facility] Fluconazole [Diflucan] 200 mg PO DAILY #10 tab Transmission Status: Pending to [facility] Aspirin E.C. [Ecotrin] 81 mg PO DAILY@0800 #30 tab Transmission Status: Pending to [facility] Primary Care Physician: Manuelito Escamilla MD [Primary Care Provider] - Please follow up with your Primary Care Physician in: In 1 week Please Follow Up With: Raymon Rendon MD When: with stress ECHO in 1 week Medical Necessity - Tobacco Use Smoking Status: Former smoker Meaningful Use Info Meaningful Use Diagnoses (Choose all that apply): None applicable OBSV E&M: 84127 Observation care discharge
--- NOTE | 2019-10-17 14:15 | CASEMGMT ---
This RN CM to room with DWYER form at this time and pt has already been discharged at this time. SSteda RN CM
== END 2019-10-17 13:08 | disposition home or self-care (01) ==
LOC: ED 11:11 → PCU 12:52
PROVIDERS: Admitting Provider Internal Medicine; Emergency Provider Emergency Medicine; PCP Family Medicine; Visit Provider Internal Medicine
DX: R07.89 Other chest pain (principal); R00.2 Palpitations; R06.09 Other forms of dyspnea; R06.02 Shortness of breath; E78.5 Hyperlipidemia, unspecified; I10 Essential (primary) hypertension; I48.91 Unspecified atrial fibrillation; I08.3 Combined rheumatic disorders of mitral, aortic and tricuspid valves; R73.03 Prediabetes; K21.9 Gastro-esophageal reflux disease without esophagitis; I49.1 Atrial premature depolarization; I49.3 Ventricular premature depolarization; R00.0 Tachycardia, unspecified; B37.9 Candidiasis, unspecified; N39.0 Urinary tract infection, site not specified; K44.9 Diaphragmatic hernia without obstruction or gangrene; Z79.899 Other long term (current) drug therapy; Z87.891 Personal history of nicotine dependence; Z87.440 Personal history of urinary (tract) infections
CPT/HCPCS: 36415; 71045; 80048; 80061; 81001; 83735; 84443; 84484; 85025; 85610; 87086; 93005; 93306; 96360; 96361; 96372; 99218; 99251; 99285; J7030; A4216; G0378; G0463

== ENCOUNTER 2019-10-20 12:12 | Observation (INO) | payer MEDICARE, SELFPAY ==
[2019-10-16 13:42] VITALS: BMI 25.9
[2019-10-20] VITALS (14 sets, daily range): BP systolic 133–163; BP diastolic 57–67; PULSE 76–92; RESP 14–18; TEMP 36.6; O2SAT 95–99; BMI 25.2
--- NOTE | 2019-10-20 10:25 | STEWCON_ITS ---
Reason For Study: CHEST PAIN Stress Results Protocol: Stress Echocardiogram Maximum Predicted HR: 141 bpm Target HR: 120 bpm % Maximum Predicted HR: 110 % DurationHeart Rate Stage (mm:ss) (bpm) BP Comment BASELINE 80 142/784 CC DILUTED DEFINITY USED ERIC PROTOCOL- STAGE 1 3:00 155 150/64DYSPNEA RECOVERY 94 154/78 Stress Duration: 3:00 mm:ss Maximum Stress HR: 155 bpm METS: 4 Baseline Echocardiogram Findings Stress Echo Wall motion Data Resting WM Intermediate WM Stress WM Resting Wall Motion Wall Motion Stress All segments Normal. Anterio-Basal: Hypokinetic. Ejection Fraction 65 %. Lateral-Basal: Hypokinetic. Posterior-Basal: Hypokinetic. Infero-Basal: Hypokinetic. Basal inferoseptal: Hypokinetic. Basal anteroseptal: Hypokinetic. Mid-Anterior : Hypokinetic. Mid-Lateral : Hypokinetic. Mid-Posterior: Hypokinetic. Mid-Inferior: Hypokinetic. Mid-inferoseptal : Hypokinetic. Mid-anteroseptal : Hypokinetic. Anterior [place] : Hypokinetic. Inferior [place] : Hypokinetic. Lateral [place] : Hypokinetic. Septall [place] : Hypokinetic. Ejection Fraction 50 %. Stress Results Heart rate response: Appropriate Blood pressure response: Resting hypertension-blunted response Arrhythmias: Occasional PAC/PVC during recovery Functional capacity: Decreased Stopped secondary to: Dyspnea. EKG Data Baseline ECG: Normal sinus rhythm. Peak exercise ECG: No obvious ECG changes. Symptoms with Stress No complaint of chest discomfort at the level of exercise achieved. Interpretation Summary 1. Contrast injection performed 2. Abnormal (adequate) stress echocardiogram A) exercise-induced left ventricular dilatation B) exercise-induced global hypokinesis with diminished LV systolic function/LVEF compared to baseline Ordering Physician: Raymon Rendon Referring Physician: Raymon Rendon Performed By: Lisa Solorzano, RDCS, RVT
--- NOTE | 2019-10-20 12:23 | CON.PCM_ITS ---
Problem List (1) Abnormal stress test Status: Acute (2) Angina pectoris Status: Acute (3) Cardiac dysrhythmia Status: Chronic (4) HLD (hyperlipidemia) Status: Chronic Qualifiers: Hyperlipidemia type: unspecified Qualified Code(s): E78.5 - Hyperlipidemia, unspecified (5) Hypertension Status: Chronic Reason for Consult Date of Consultation: 10/20/19 History of Present Illness: The patient is a 79 year old white female who presents for evaluation of symptoms concerning for angina pectoris and an abnormal stress echocardiogram. The patient was recently evaluated in the outpatient setting by Raymon Rendon MD for concerns of a combination of palpitations with an abnormal Holter monitor noting findings of underlying sinus rhythm, second-degree AV block Mobitz 1, PACs, ectopic atrial tachycardia however paroxysmal atrial fibrillation cannot be excluded, PVCs, ventricular couplets/triplets, nonsustained wide-complex runs of possible ventricular tachycardia although aberrancy cannot be excluded, for further evaluation. Her medications were adjusted and she was placed on medical therapy with diltiazem/Cardizem CD 120 mg daily. She noted improvement but not resolution of her symptoms. Her medication dose was adjusted up to 180 mg p.o. daily. She states she felt better. She states she was told if she had any concerning chest discomfort to present to [facility] for further evaluation. She did so on 10-16-2019. At that time she underwent noninvasive evaluation. This included laboratory studies with cardiac enzymes which were reported as negative. She also had a transthoracic echocardiogram performed. The results are as noted below. She states she standing that she was going to be having an exercise tolerance test study performed however she states that did not occur and she was released home for continued outpatient follow-up. She presented today for an outpatient stress echocardiogram. Her stress echocardiogram was thought to be abnormal with respect to echocardiographic images suggesting post-rest left ventricular dilatation/dysfunction. (Please see official report) The patient states that she has been having chest discomfort/shoulder discomfort. She notes this occurs more so with exertional activity although she states it did not occur during her stress echocardiogram. She has not complained of orthopnea or PND. She has had no issues with near syncope or syncope. She has noted improvement in her palpitations on her current medical management. She also states that her lipid-lowering therapy was adjusted and she believes her lipids have come under better control. She states she has been taking aspirin 81 mg p.o. daily recently. She has been taking her other medications as prescribed. She states she is in the process of moving to [place], [place] later this month. She states this is led to additional emotional stress for her. [] Past Medical History Allergies/Adverse Reactions: Allergies aspirin Adverse Reaction (Verified 10/16/19 09:35) Diarrhea Home Medications: Ambulatory Orders Medication Instructions Recorded Atorvastatin Calcium 20 mg PO DAILY 07/27/19 Sertraline HCl 50 mg PO DAILY 07/27/19 Omeprazole 40 mg PO DAILY 10/09/19 gabapentin 100 mg capsule 100 mg PO QHS cap 10/13/19 triamcinolone acetonide 0.1 % 1 applic TOPICAL DAILY PRN 10/13/19 topical cream diltiazem HCl 180 mg 180 mg PO DAILY #30 cap 10/15/19 capsule,extended release 24 hr Aspirin E.C. [Ecotrin] 81 mg PO DAILY@0800 #30 tab 10/17/19 Ciprofloxacin [Cipro] 500 mg PO BID #7 tab 10/17/19 Fluconazole [Diflucan] 200 mg PO DAILY #10 tab 10/17/19 Past Medical History (Chronic Problems): Chronic Problems (Last Updated 10/13/19 @ 18:23 by Kaylee Vernon) Cardiac dysrhythmia (Chronic) HLD (hyperlipidemia) (Chronic) Hypertension (Chronic) Prediabetes (Chronic) Surgical History: no surgical history Smoking Status: Former smoker Alcohol: None Drugs: None Review of Systems - Review of Systems General: Denies: Fever, Night Sweats, Fatigue Cardiovascular: Reports: Chest Discomfort, Palpitations. Denies: Shortness of Breath, Orthopnea, PND, Peripheral Edema, Lightheadedness, Dizziness, Near Syncope, Syncope Respiratory: Denies: Cough, Sputum Production, Hemoptysis Gastrointestinal: Denies: Hematemesis, Hematochezia, Melena Genitourinary: Denies: Dysuria, Hematuria Skin: Denies: Rash Subjectve: This is a pleasant 79-year-old white female who appears to be resting comfortably at the moment in no acute distress. Objective: Vital Signs Temp Pulse Resp BP Pulse Ox 97.9 F 85 14 163/64 H 99 10/20/19 12:10/20/19 12:10/20/19 12:10/20/19 12:10/20/19 12:07 Oxygen Delivery Method Room Air Weight: 161 lb 2.526 oz Body Mass Index (BMI) 25.2 General: Healthy Appearing, Awake, Alert, Oriented x 3, Cooperative, No Acute Distress HEENT: Atraumatic, Normocephalic, PERRL, EOMI, Sclera Non Icteric Neck: Supple, Good ROM, No JVD Lungs: Clear to auscultation Cardiovascular: Regular Rhythm, Normal S1, Normal S2 Vascular: No Carotid Bruits Abdomen: Bowel Sounds Present, Soft Extremities: No edema Neurological: No Focal Motor or Sensory Deficit Psych/Mental Status: Appropriate Rhythm: EKG: Sinus rhythm ECHO: Interpretation Summary The estimated ejection fraction is 65 %. Unable to assess diastolic dysfunction. Mild-Moderate (1-2+) mitral valve insufficiency. Mild (1+) aortic valve insufficiency. Stress Test: 1. Contrast injection performed 2. Abnormal (adequate) stress echocardiogram A) exercise induced left ventricular dilatation B) exercise-induced global left ventricular systolic dysfunction and diminished LVEF compared to baseline CXR: 7?31?20 20 Per radiology: No acute cardiopulmonary disease process appreciated Assessment/Plan 1. Abnormal stress echocardiogram The patient presents with concerns of an abnormal stress echocardiogram. This does raise concern, coupled with the patient's symptoms, risk factors, and previous objective findings, the possibility of underlying CAD. At the present time it was felt the patient, based upon the combination of the above, should be brought into the hospital for further evaluation and care for the possibility of underlying CAD. This would include diagnostic cardiac catheterization. The procedure and risks were discussed with her and she was agreeable to this approach. She will be monitored. She will continue medical therapy as deemed appropriate. 2. Angina pectoris She does present with symptoms concerning for stable exertional angina pectoris. Again based upon a combination of her symptoms, her risk factors, and her previous objective findings, there was concern of underlying CAD. Thus she has been recommended undergo further evaluation with diagnostic cardiac catheterization. She will continue medical management as deemed appropriate in the interim. 3. Cardiac dysrhythmia She does have a abnormal Holter monitor suggesting a variety of cardiac dysrhythmias both atrial and ventricular as noted. Based upon her ongoing symptoms and her abnormal stress echocardiogram there is concern of underlying CAD contributing to this. She has had improvement on her medical management. Her medications can be adjusted as her clinical course progresses. In the interim she will be considered for further evaluation with diagnostic cardiac catheterization. 4. Hyperlipidemia She will continue lipid-lowering therapy. 5. Hypertension Her blood pressure will be followed. She will continue medical management as deemed appropriate. Comment: The above was discussed with the patient. At the present time she states she would rather be brought into the hospital and move forward with her evaluation care as opposed to waiting especially noting her ongoing symptoms and findings and her need to complete an upcoming move to a new home in [place], [place]. This note was generated using a voice recognition system and there may be incorrect words, spelling or punctuation that were not noted when reviewing the office note prior to saving. Procedure Criteria Procedure Type: Elective COVID Risk Discussion: The surgeon/proceduralist and patient have discussed in detail the risk of exposure to and/or potential harm posed by the COVID-19 virus with having a surgery/procedure at this time versus the risk of delaying the surgery/procedure. It is not possible to know either the risk of delaying the surgery or procedure or chance of getting an infection with perfect accuracy, but a joint decision was made between the patient and the surgeon/proceduralist to proceed at this time with the scheduled surgery/procedure as indicated on the consent form.
--- NOTE | 2019-10-20 12:43 | CASEMGMT ---
According to the [facility] website, the following are in-network tertiary facilities: [facility], [place], [facility], [facility], and [facility]. Joni ELI CM
[2019-10-20] MEDS: 0.9% Normal Saline 1,000 ML 50 ML IV (12:58)
--- NOTE | 2019-10-20 14:34 | CL.D_ITS ---
Patient Name: LUCRECIA KNIGHT Study Date: 10/20/2019 Performing: Jose Alberto Capellan MD Ht: 67 inches 170 cm : 1940 Wt: 161.1 lbs 73 kg Age: 79 Gender: female BSA: 1.84 PROCEDURE(S) PERFORMED [id number]/COR/LV CLINICAL PROFILE AND INDICATIONS Indications: Worsening Angina, Cardiac Arrythmia, Suspected CAD Heart Failure: None Stress/Imaging Date: 10/20/2019Stress Echocardiogram: Positive Angina Classification Anginal Classification w/in 2 Weeks: CCS III CAD Presentations: Stable angina. CONCLUSIONS Elevated Left Ventricular End Diastolic Pressure Normal LV size, wall motion,and systolic function LVEF: by LV gram 65 % Quechan Multivessel CAD Mitral Valve Annular Calcification Moderate - Severe Aortic Root possibly dilated RECOMMENDATIONS Risk factor modification Medical therapy Surgery consult for coronary revascularization DESCRIPTION OF PROCEDURE The patient arrived to the procedure lab. The risks and benefits of the procedure as well as a full d escription of our services here and current unavailability of surgical backup were fully explained to the patient and/or their significant other prior to the catheterization. The Timeout was completed, verifying the correct patient and procedure. The patient's procedural site was prepped and draped in the usual fashion. Local anesthetic was given subcutaneously to right radial region with Lidocaine 2% . Using a modified Seldinger technique, arterial access was obtained via the right radial artery, a 6 Fr sheath was inserted. Left Coronary Artery selective angiography was performed in multiple views u sing a 5 Fr. 4.0 Switzer catheter. Right Coronary Artery selective angiography was then performed in mu ltiple views using a 5 Fr. 4.0 Switzer catheter. Left Ventriculography was performed in NGUYEN projection using a 5 Fr. Pigtail catheter.The arterial sheath was pulled and a TR Band was applied for hemostasis CORONARY ANGIOGRAPHY DOMINANCE: Right Dominant LEFT HEART ASSESSMENT Left Ventricular Ejection Fraction: by LV Gram 65 % Normal LV wall motion Elevated Left Ventricular End Diastolic Pressure LVEDP: 21 mmHg LEFT MAIN: Moderate calcification, Severe calcification (distal), Mild luminal irregularities, distal : eccentric: 85 % Stenosis LEFT ANTERIOR DESCENDING ARTERY: OSTIAL LAD: Severe calcification, eccentric: 85 % Stenosis MID LAD: s/p DX: 50 - 75 % Stenosis CIRCUMFLEX ARTERY: Mild luminal irregularities RIGHT CORONARY ARTERY: Mild calcification Mild luminal irregularities VALVE FINDINGS: Mitral Valve Annulus: Calcification Moderate - Severe AORTIC ROOT: Possibly Dilated COMPLICATIONS No Complications PROCEDURE MEDICATIONS Versed 1 mg IV Fentanyl 50 mcg IV Oxygen: 2 L/min via nasal cannula Baby Aspirin (81mg) 1 Tabs PO @ 10/20/2019 13:09:30 Heparin diluted in 23cc Heparinized saline. Patient given 10cc IA of this solution. 10/20/2019 13:37:2 5 Verapamil 2.5mg, Ntg 100mcgs, 2000 units of Heparin diluted in 23cc Heparinized saline. Patient give n 10cc IA of this solution. 10/20/2019 13:37:25 SUMMARY OF HEMODYNAMIC DATA Time AIR REST ECG 13:16:21 AO 161/54 (80) SA 13:39:46 AO 143/63 (97) 13:43:10 LV 150/3, 23 14:00:21 LV 149/5, 21 14:00:27 LV 152/2, 24 14:01:11 LV 150/-2, 24 14:01:17 LVp 148/-6, 23 14:01:24 AOp 158/53 (95) 14:01:29 Signed By Jose Alberto Capellan MD On 10/20/2019 14:33:33 Jose Alberto Capellan MD
--- NOTE | 2019-10-20 16:16 | NURSING ---
called report to [facility], spoke with ALCIRA Casanova
[2019-10-20] MEDS: Aspirin 81 MG TAB.CHEW (17:08)
== END 2019-10-20 14:37 | disposition short-term general hospital (02) ==
PROVIDERS: Admitting Provider Internal Medicine Cardiovascular Disease; PCP Family Medicine; Referring Provider Internal Medicine Cardiovascular Disease; Visit Provider Internal Medicine Cardiovascular Disease
DX: I25.118 Atherosclerotic heart disease of native coronary artery with other forms of angina pectoris (principal); E78.5 Hyperlipidemia, unspecified; R94.39 Abnormal result of other cardiovascular function study; I10 Essential (primary) hypertension; I44.1 Atrioventricular block, second degree; I48.0 Paroxysmal atrial fibrillation; R73.03 Prediabetes; Z79.899 Other long term (current) drug therapy; Z79.82 Long term (current) use of aspirin; Z87.891 Personal history of nicotine dependence
CPT/HCPCS: 93005; 93017; 93350; 93458; 99152; 99153; J7030; Q9957; Q9967; A4216; C1769; C1894; C8928

== ENCOUNTER 2024-05-09 13:46 | Emergency (ER) | payer MEDICARE, SELFPAY ==
[2024-05-09 13:47] VITALS: BP 135/70; PULSE 81; RESP 16; TEMP 36.2; O2SAT 99; BMI 22.7
--- NOTE | 2024-05-09 14:48 | EDS_ITS ---
HPI History of Present Illness Chief Complaint: Ear Problem Informant: patient Narrative Narrative: Patient states for the last several days she has been having discomfort in her right ear, she thought maybe it was wax so she placed some oil in it but it did not result in helping anything. She denies any URI symptoms recently or injury or changes in her hearing or dizziness or fever/chills or headache. FORMERLY [facility], [facility] PFS Medical History Atrial fibrillation Essential hypertension Atherosclerotic heart disease of [place] coronary artery without angina pectoris Prediabetes Skin cancer Degenerative disc disease Hiatal hernia GERD (gastroesophageal reflux disease) Nonrheumatic mitral (valve) insufficiency Hyperlipidemia Premature atrial contractions Premature ventricular contractions Sinus tachycardia Home Medications ?Medication ?Instructions ?Recorded ?Last Taken ?Type atorvastatin 20 mg tablet 20 mg PO DAILY 07/27/1906/04 History sertraline 50 mg tablet 50 mg PO DAILY 07/27/1907/05 History omeprazole 40 mg capsule,delayed 40 mg PO DAILY 10/20/19 History release gabapentin 100 mg capsule 100 mg PO QHS 10/13/1910/18 History aspirin 81 mg tablet,delayed 81 mg PO DAILY@0800 #30 t abs 10/17/19 10/19/19 Rx release trazodone 100 mg tablet 100 mg PO QHS PRN sleep 06/04 Unknown History metoprolol succinate 25 mg 50 mg (2 x 25 mg) PO BID #1 80 tabs 11/24/19 Unknown Rx tablet,extended release 24 hr Allergy/AdvReac Type Severity Reaction Status Date / Time amiodarone AdvReac Intermediate I feel Verified 05/09/24 13:50 awful on it Family History Father Thoracic aortic aneurysm (TAA) Sister Hypertension Arthritis Surgical History History of coronary artery bypass surgery (~10/22/19) History of left heart catheterization (10/20/19) History of tubal ligation History of esophagogastroduodenoscopy (EGD) History of colonoscopy Social History Smoking Status: Former smoker ROS ROS ED Constitutional Constitutional ED: Denies chills or fever(s) Eyes Eyes: Denies change in vision ENT ENT ED: Reports ear pain right; Denies rhinorrhea or sore throat Respiratory/Chest Respiratory/Chest: Denies cough Gastrointestinal Gastrointestinal: Denies nausea or vomiting Integumentary Denies rash Neurologic Neurologic: Denies headache(s) EXAM Physical Exam Const Vital Signs: 05/09/24 13:47 Temperature 97.1 F L Temperature Source Oral Pulse Rate 81 Respiratory Rate 16 Blood Pressure 135/70 H Blood Pressure Mean 91 Pulse Ox 99 Oxygen Delivery Method Room Air Positive well nourished and well developed General Appearance ED: well developed and NAD HEENT Reports moist mucous membranes HEENT Narrative: TMs clear bilaterally, they are partially visualized, there is a significant amount of cerumen in the right, small amount on the left. No otorrhea. There is no discomfort with speculum exam on either EAC and no discomfort with manipulation of the pinna or the tragus bilaterally. Normal EAC otherwise. Eyes PERRL and EOMs intact bilaterally Neck no lymphadenopathy and supple Resp normal respiratory effort MDM MDM MDM Narrative Medical decision making narrative: Consistent with cerumen impaction. I used a plastic cerumen scoop to remove part of the cerumen impaction, at the tail end it was uncomfortable and there was a little bit of bleeding from 1 part of the EAC, but she already noticed significant improvement in her discomfort, so I had nursing irrigate the rest out, and more was able to be removed. She felt a lot better, and was discharged with instructions for supportive care. Discharge Plan Triage Chief Complaint: Ear Problem ED Provider: Rodo Salinas Dx/Rx/DC Orders Clinical Impression: Right ear impacted cerumen Instructions: ED Cerumen Impaction Treated Prescriptions: No Action trazodone 100 mg tablet 100 mg PO QHS PRN (Reason: sleep) gabapentin 100 mg capsule 100 mg PO QHS atorvastatin 20 MG tablet 20 mg PO DAILY sertraline 50 MG tablet 50 mg PO DAILY omeprazole 40 MG capsule,delayed release(DR/EC) 40 mg PO DAILY aspirin 81 MG tablet 81 mg PO DAILY@0800 Qty: 30 1RF metoprolol succinate 25 mg tablet extended release 24 hr 50 mg PO BID Qty: 180 3RF Primary Care Provider: Manuelito Escamilla Referrals: Manuelito Escamilla MD [Primary Care Provider] - As Needed Print Language: Azeri Disposition Disposition: Home, Self Care Discharge Date/Time: 05/09/24 15:07
== END 2024-05-09 15:07 | disposition home or self-care (01) ==
PROVIDERS: Emergency Provider Emergency Medicine; PCP Family Medicine; Referring Provider Emergency Medicine; Visit Provider Emergency Medicine
DX: H61.21 Impacted cerumen, right ear (principal); I48.91 Unspecified atrial fibrillation; I10 Essential (primary) hypertension; K21.9 Gastro-esophageal reflux disease without esophagitis; E78.5 Hyperlipidemia, unspecified; I25.10 Atherosclerotic heart disease of native coronary artery without angina pectoris; Z95.1 Presence of aortocoronary bypass graft; Z79.82 Long term (current) use of aspirin; Z79.899 Other long term (current) drug therapy; Z87.891 Personal history of nicotine dependence
CPT/HCPCS: 99283

== ENCOUNTER → 2025-02-03 | Outpatient (CLI) | payer MEDICARE, SELFPAY ==
[2025-02-03 15:47] LABS: Anion Gap 9 (5-15); BUN 18 mg/dL (4-19); BUN/Creat Ratio 19.9 RATIO (10-20); Calcium,Total 9.3 mg/dL (7.6-11.0); Carbon Dioxide 25.9 mmol/L (21.0-32.0); Chloride 100 mmol/L (98-108); Glucose 124 mg/dL (70-99); Potassium 4.1 mmol/L (3.3-5.1)
== END | disposition home or self-care (01) ==
LOC: BFHLAB 13:45
PROVIDERS: PCP Nurse Practitioner Family; Visit Provider Nurse Practitioner Family
DX: R79.89 Other specified abnormal findings of blood chemistry (principal)
CPT/HCPCS: 36415; 80048